=== PATIENT | male | born 1980 | race Caucasian/White ===

== ENCOUNTER 2017-05-12 23:41 | Inpatient (IN) | payer BC ==
[2017-05-13 00:30] LABS: Hematocrit 50 % (42-52); Hemoglobin 17.3 g/dl (14.0-18.0); Mean Corpuscular HGB Conc 34 g/dl (31-36); Mean Corpuscular Hemoglobin 32 pg (27-31); Mean Corpuscular Volume 94 fL (80-94); Mean Platelet Volume 8 um3 (7.4-10.4); Red Blood Count 5.35 10^6/ul (4.0-5.4); Red Cell Distribution Width 13 % (10.5-15); White Blood Count 14.3 10^3/ul (3.5-10.8)
[2017-05-13 00:31] LABS: Urine Bacteria Absent (Absent); Urine Bilirubin Negative (Negative); Urine Glucose Negative (Negative); Urine Nitrite Negative (Negative)
[2017-05-13 00:41] LABS: ALT 19 U/L (7-52); AST 35 U/L (13-39); Albumin 4.7 g/dL (3.2-5.2); Alkaline Phosphatase 42 U/L (34-104); Anion Gap 13 mmol/L (2-11); BUN/Creatinine Ratio 10.6 (8-20); Blood Urea Nitrogen 11 mg/dL (6-24); CO2 Carbon Dioxide 23 mmol/L (22-32); Calcium 9.7 mg/dL (8.6-10.3); Chloride 103 mmol/L (101-111); EGFR African American 104.5 (>60); EGFR Non-African American 81.3 (>60); Globulin 2.8 g/dL (2-4); Glucose 99 mg/dL (70-100); Potassium 3.3 mmol/L (3.5-5.0); Sodium 139 mmol/L (133-145); Total Protein 7.5 g/dL (6.4-8.9)
[2017-05-13 00:44] LABS: Benzodiazepine Urine Screen Presumptive Positive (None Detect)
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
[2017-05-13 01:01] LABS: Acetaminophen < 15 mcg/mL; Alcohol 15 mg/dL (<10); Salicylate < 2.50 mg/dL (<30)
[2017-05-13 01:53] LABS: TSH (Thyroid Stimulating Horm) 2.41 mcIU/mL (0.34-5.60)
[2017-05-13] MEDS ORDERED: LORazepam TAB(*) 1 MG PO ONE (04:03)
[2017-05-13] MEDS ORDERED: LORazepam TAB(*) 1 MG ONE (04:04)
[2017-05-13] MEDS ORDERED: Nicotine GUM* 2 MG PO PRN (05:59)
[2017-05-13] MEDS ORDERED: Mouth Piece, Nicotine* 1 EACH CARTRIDGE INH SCH (05:59)
[2017-05-13] MEDS ORDERED: Acetaminophen TAB* 325 MG PO PRN (05:59)
[2017-05-13] MEDS ORDERED: Nicotine Inhaler* 10 MG AMP INH PRN (05:59)
[2017-05-13] MEDS ORDERED: Al Hydrox/Mg Hydrox/Simet LIQ* 30 ML UDC PO PRN (05:59)
[2017-05-13] MEDS ORDERED: Albuterol 2.5 MG/3 ML NEB.SOL* (0.083%) INH PRN (06:01)
[2017-05-13] MEDS ORDERED: Albuterol HFA INHALER* 8 gm MDI INH PRN (06:39)
[2017-05-13] MEDS ORDERED: LORazepam PO 0-6 for WAM protocol PO SCH (07:00)
[2017-05-13] MEDS ORDERED: LORazepam IM 0-6 mg for WAM protocol IM SCH (07:00)
[2017-05-13] MEDS: Citalopram TAB* 40 MG PO SCH (08:55)
[2017-05-13] MEDS: Folic Acid TAB* 1 MG DAILY PO SCH (08:55)
[2017-05-13] MEDS: Multivitamins ADULT TAB DAILY PO SCH (08:56)
[2017-05-13] MEDS: Mometasone 220 MCG MDI INH SCH (17:36)
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
[2017-05-14] MEDS: Folic Acid TAB* 1 MG DAILY PO SCH (08:15)
[2017-05-14] MEDS: Citalopram TAB* 40 MG PO SCH (08:15)
[2017-05-14] MEDS: Multivitamins ADULT TAB DAILY PO SCH (08:15)
[2017-05-14] MEDS ORDERED: Influenza VAC *QUAD* 2017-18* 0.5 ML SYRINGE IM ONE (09:00)
[2017-05-14] MEDS: Mometasone 220 MCG MDI INH SCH (17:45)
[2017-05-14] MEDS ORDERED: traZODone TAB* 50 MG TAB ONE (20:32)
[2017-05-14] MEDS: traZODone TAB* 50 MG TAB PO PRN (20:45)
[2017-05-15] MEDS: Multivitamins ADULT TAB DAILY PO SCH (09:28)
[2017-05-15] MEDS: Citalopram TAB* 40 MG PO SCH (09:28)
[2017-05-15] MEDS: Folic Acid TAB* 1 MG DAILY PO SCH (09:28)
--- NOTE | 2017-05-15 14:51 | PN ---
Subjective - Subjective Service Type: 26812 Hosp care 15 min low complexity Subjective: Was in the milieu happy with peers. Says he wants to be discharged home because his cannot care for his children and they have resolved their differences during her visit today. Denies mood, thoughts or perceptual disturbances since his admission. Objective - Appearance Appearance: Thin Framed Dysmorphic Features: No Hygiene: Normal Grooming: Fairly Well Kept - Behavior Psychomotor Activities: Normal Exhibits Abnormal Movement: No - Attitude and Relatedness Attitude and Relatedness: Appropriate Eye Contact: Good - Speech Quality: Unpressured Latencies: Normal Quantity: Appropriate - Mood Patient's Decription of Mood: "Fine" - Affect Observed Affect: Non-labile - Thought Process Patient's Thought Process: Coherent, Goal Directed Thought Content: No Passive Wish, No Suicidal Planning, No Homicidal Ideation, No Paranoid Ideation - Sensorium Experiencing Hallucinations: No, Sensorium is Clear Type of Hallucinations: Visual: No, Auditory: No, Command: No - Level of Consciousness Level of Consciousness: Alert Orientation: Yes Intact, Yes Orientated to Time, Yes Orientated to Place, Yes Orientated to Person - Impulse Control Impulse Control: Tenuous - Insight and Judgement Insight and Judgement: Poor - Group Participation Particating in Group Activities: Yes - Medication Management Medication Management Adherence: Yes Assessment - Assessment Merits Inpatient Hospitalization: Consolidate Improvements, Pending Safe DC Plan Plan - Plan Treatment Plan: Name: SADIE AGUSTIN Birthdate: 1980 [id number] Continued Medication Management: Continue Outpt Medication Medications: Current Medications Acetaminophen (Tylenol Tab*) 650 mg PO Q4H PRN PRN Reason: PAIN or TEMP > 101 F Al Hydrox/Mg Hydrox/Simethicone (Maalox Plus*) 30 ml PO Q4H PRN PRN Reason: INDIGESTION Albuterol (Ventolin Hfa Inhaler*) 2 puff INH Q4H PRN PRN Reason: SOB/WHEEZING Citalopram Hydrobromide (Celexa Tab*) 40 mg PO DAILY [facility] Last Admin: 05/15/17 09:28 Dose: 40 mg Device (Nicotine Mouth Piece*) 1 each INH .CARTRIDGE OSMIN Folic Acid (Folvite Tab*) 1 mg PO DAILY [facility] Last Admin: 05/15/17 09:28 Dose: 1 mg Lorazepam (Ativan Tab(*)) 0 - 6 mg PO .PER [facility] OSMIN PRN Reason: Protocol Lorazepam (Ativan Inj*) 0 - 6 mg IM .[facility] PROTOCOL OSMIN PRN Reason: Protocol Mometasone Furoate (Asmanex 220 Mcg Mdi *) 1 puff INH QPM [facility] Last Admin: 05/14/17 17:45 Dose: 1 inh Multivitamins/Minerals (Theragran/Minerals Tab*) 1 tab PO DAILY [facility] Last Admin: 05/15/17 09:28 Dose: 1 tab Nicotine (Nicotine Inhaler*) 10 mg INH Q2H PRN PRN Reason: CRAVING Nicotine Polacrilex (Nicotine Gum*) 2 mg PO Q2H PRN PRN Reason: CRAVING Trazodone HCl (Desyrel Tab*) 50 mg PO BEDTIME PRN PRN Reason: INSOMNIA Last Admin: 05/14/17 20:45 Dose: 50 mg - Discharge Plan Discharge Plan: Outpatient Follow Up [facility]
[2017-05-15] MEDS: Mometasone 220 MCG MDI INH SCH (18:11)
[2017-05-15] MEDS: traZODone TAB* 50 MG TAB PO PRN (20:42)
[2017-05-16] MEDS: Citalopram TAB* 40 MG PO SCH (10:02)
[2017-05-16] MEDS: Multivitamins ADULT TAB DAILY PO SCH (10:02)
[2017-05-16] MEDS: Folic Acid TAB* 1 MG DAILY PO SCH (10:02)
--- NOTE | 2017-05-16 11:44 | PN ---
[facility]HU: Group Therapy Note - Service Type Service Type: 25699 Group Psychotherapy - Cognitive Behavioral Group Therapy ( CBT):Patient was attentive and participatory in CBT programming this morning, and remained in good behavioral control. Patient expressed positive insights regarding relevant treatment interventions and goals.
--- NOTE | 2017-05-16 16:06 | PN ---
Subjective - Subjective Service Type: 21156 Hosp care 15 min low complexity Subjective: On interview, patient noted to be full in affect smiling appropriately through the interview. He reports use of 1-2 ounces of [place] and 1 0.5mg Xanax tab to get to sleep and denies use of more. 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 He reports over the last 2 weeks getting approx. 2 hours of sleep per night due to a colicky . Patient denies OD on his remaining Xanax tabs. Per admission reported patient likely OD on approx. 20 Xanax 0.5mg tabs as per pill count that amount should have been in the bottle which was empty. Patient reports it was lack of sleep which led to his episode of confusion and agitation. Patient reports not fully recalling what happened the evening his and friends drove him to the hospital. He does recall accusing his of taking his Xanax tabs and then recalling attempting to jump from the car they were in once it came to a stop, reporting he panicked not knowing why he was being taken to the hospital. Patient reports recalling being cuffed by police and answering the officers questions prior to being brought to the ED. Patient reports recent stressors of 3 moves over the last 1 and a half due to his 's work. He reports only 2 weeks now being back in [place], transitioning from their home in [place]. Patient reports also his has been away for work recently, and he has not slept. Patient endorses a hx of suicide attempt in 11/2016 by attempting to hang himself. He reports again, the stress of having 2 colicky children and his not supporting him. Patient today says his 2 girls are his purpose in life. He again reports he did not OD on his Xanax tabs and does not know where the approx. 20 pills may be. Patient denies current SI/HI and AH/VH. He has not scored on WAM monitoring since admission. He reports experiencing no w/d symptoms. Patient aware he will not be discharging on benzos. Objective - Appearance Appearance: Well Developed/Nourished, Healthy Appearing, Thin Framed Dysmorphic Features: No Hygiene: Normal Grooming: Fairly Well Kept - Behavior Psychomotor Activities: Normal Exhibits Abnormal Movement: No - Attitude and Relatedness Attitude and Relatedness: Cooperative Eye Contact: Fair - Speech Quality: Unpressured Latencies: Normal Quantity: Appropriate - Mood Patient's Decription of Mood: "Okay" - Affect Observed Affect: Fair Affect Consistent with: Euthymia - Thought Process Patient's Thought Process: Coherent Thought Content: No Passive Wish, No Suicidal Planning, No Homicidal Ideation, No Paranoid Ideation - Sensorium Experiencing Hallucinations: No, Sensorium is Clear Type of Hallucinations: Visual: No, Auditory: No, Command: No - Level of Consciousness Level of Consciousness: Alert Orientation: Yes Intact, Yes Orientated to Time, Yes Orientated to Place, Yes Orientated to Person - Impulse Control Impulse Control: Intact - Insight and Judgement Insight and Judgement: Fair - Group Participation Particating in Group Activities: Yes - Medication Management Medication Management Adherence: Yes Assessment - Assessment Merits Inpatient Hospitalization: For Immediate Safety, For Stabilization Inpatient DSM-IV Dx: 1. MDD, R, M w/o PFs. 2. Cannabis use d/o. 3. r/o Alcohol use d/o. 4. r/o Benzodiazepine use d/o Plan - Plan Treatment Plan: Name: SADIE AGUSTIN Birthdate: 1980 [id number] 1. Continue [facility] admission for safety and symptom mx. 2. Continue Celexa 40mg po daily for mood. 3. WAM discontinued, patient has not scored in >72 hours of assessments. 4. Continue MVI, Folic acid, Thiamine replacement for r/o Alcohol use d/o symptoms. 5. Continue Trazodone 50mg po qhs PRN for sleep issues. 6. Continue gathering of collateral information from dad and . 7. Patient to participate in milieu activities and groups. Continued Medication Management: Different Medication Medications: Current Medications Acetaminophen (Tylenol Tab*) 650 mg PO Q4H PRN PRN Reason: PAIN or TEMP > 101 F Al Hydrox/Mg Hydrox/Simethicone (Maalox Plus*) 30 ml PO Q4H PRN PRN Reason: INDIGESTION Albuterol (Ventolin Hfa Inhaler*) 2 puff INH Q4H PRN PRN Reason: SOB/WHEEZING Citalopram Hydrobromide (Celexa Tab*) 40 mg PO DAILY OSMIN Last Admin: 05/16/17 10:02 Dose: 40 mg Device (Nicotine Mouth Piece*) 1 each INH .CARTRIDGE OSMIN Folic Acid (Folvite Tab*) 1 mg PO DAILY REPLACED BY [facility] Last Admin: 05/16/17 10:02 Dose: 1 mg Mometasone Furoate (Asmanex 220 Mcg Mdi *) 1 puff INH QPM REPLACED BY [facility] Last Admin: 05/15/17 18:11 Dose: 1 inh Multivitamins/Minerals (Theragran/Minerals Tab*) 1 tab PO DAILY REPLACED BY [facility] Last Admin: 05/16/17 10:02 Dose: 1 tab Nicotine (Nicotine Inhaler*) 10 mg INH Q2H PRN PRN Reason: CRAVING Nicotine Polacrilex (Nicotine Gum*) 2 mg PO Q2H PRN PRN Reason: CRAVING Trazodone HCl (Desyrel Tab*) 50 mg PO BEDTIME PRN PRN Reason: INSOMNIA Last Admin: 05/15/17 20:42 Dose: 50 mg - Discharge Plan Discharge Plan: Outpatient Follow Up
[2017-05-16] MEDS: Mometasone 220 MCG MDI INH SCH (18:16)
[2017-05-16] MEDS: traZODone TAB* 50 MG TAB PO PRN (20:12)
[2017-05-17 07:47] VITALS: BP 120/71
[2017-05-17] MEDS: Folic Acid TAB* 1 MG DAILY PO SCH (08:52)
[2017-05-17] MEDS: Citalopram TAB* 40 MG PO SCH (08:52)
[2017-05-17] MEDS: Multivitamins ADULT TAB DAILY PO SCH (08:52)
--- NOTE | 2017-05-17 13:32 | DS ---
Subjective - Subjective Service Types: 31858 [facility] Day Mgmt simple under 30 min Subjective: Patient noted to be visible in the milieu, pleasant, social with peers and attending groups. Patient reports good benefit from groups and requested outpt psychotherapy from inpt therapist Dr. Gianni Acosta. He again reports no depression or anxiety. Patient again reports good sleep and appetite. Patient gave BLAISE for this provider to call his #[phone]. reports patient has reported fleeting SI since his last suicide attempt 1 year ago. She reports understanding he is stressed with care of the 2 children and is happy to be back in [place] around supportive family who can help patient while she is on the road for work. She report during patient rage on night of admission, he grabbed a rifle which was in the home. She reports he expressed SI, but reports while in the ED, patient reported not recalling making those statements. She reports believing patient was using more Xanax than prescribed and reports she does not feel he OD'd on 20tabs, but due to his behavioral display and subsequent lack of memory of the details, she feels he did likely take more that one tab with his evening bourbon. reports she is comfortable with patient discharging home as from her calls and visit with patient while admitted, he is engaged in continuing MH therapy after discharge and engaged in working on communication techniques in their relationship. Patient has been med compliant since admission. Patient denies med s/e's. Patient reports feeling ready for discharge. Patient is A&Ox4, linear and GD in TP, and future oriented in TC. Patient reports his desire to get home to his 2 baby girls who he again endorses are his purpose for living and primary protective factors. Patient again denies SI/ HI and AH/VH. Patient is psychiatrically stable. Discharge plan has been discussed and patient is amenable and acknowledges understanding. Patient instructed to call the crisis hotline, 911, or self present to a local ED if SI recurs. Patient was amenable and acknowledged understanding of family and community supports. Patient will be discharge home with his who has come to pick him up. Objective - Appearance Appearance: Well Developed/Nourished, Healthy Appearing, Thin Framed Dysmorphic Features: No Hygiene: Normal Grooming: Well Kept - Behavior Psychomotor Activities: Normal Exhibits Abnormal Movement: No - Attitude and Relatedness Attitude and Relatedness: Cooperative Eye Contact: Good - Speech Quality: Unpressured Latencies: Normal Quantity: Appropriate - Mood Patient's Decription of Mood: "Fine" - Affect Observed Affect: Fair Affect Consistent with: Euthymia - Thought Process Patient's Thought Process: Coherent Thought Content: No Passive Wish, No Suicidal Planning, No Homicidal Ideation, No Paranoid Ideation - Sensorium Experiencing Hallucinations: No, Sensorium is Clear Type of Hallucinations: Visual: No, Auditory: No, Command: No - Level of Consciousness Level of Consciousness: Alert Orientation: Yes Intact, Yes Orientated to Time, Yes Orientated to Place, Yes Orientated to Person - Impulse Control Impulse Control: Intact - Insight and Judgement Insight and Judgement: Fair - Group Participation Particating in Group Activities: Yes - Medication Management Medication Management Adherence: Yes Treatment Course & Assessment Clinical Course & Impression: HOSPITAL COURSE: Patient admitted to [facility] on 05/13/17 after display of erratic and bizarre behavior while making suicidal statements. Patient reported to be belligerent and combative, but subdued and driven to the [facility] ED by aleisha's and her friends visiting at the time. Concern was that patient had OD'd on his remaining 20 - Xanax 0.5mg tabs. Patient and recently had been dealing with marital issues associated with her job requiring her to be away from home >60% of the year. 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 He reports over the last 2 weeks getting approx. 2 hours of sleep per night due to a colicky . Patient denies OD on his remaining Xanax tabs. Per admission reported patient likely OD on approx. 20 Xanax 0.5mg tabs as per pill count that amount should have been in the bottle which was empty. He reports use of 1-2 ounces of [place] and 1 0.5mg Xanax tab to get to sleep and denies use of more. Patient reports it was lack of sleep which led to his episode of confusion and agitation. Patient reports not fully recalling what happened the evening his and friends drove him to the hospital. He does recall accusing his of taking his Xanax tabs and then recalling his attempting to jump from the car they were in once it came to a stop, reporting he panicked not knowing why he was being taken to the hospital. Patient reports recalling being cuffed by police and answering the officers questions prior to being brought to the ED. had called police from the street as patient was combative with and friends regarding being taken to the ED. Patient reports recent stressors of 3 moves over the last 1 and a half due to his 's work. He reports only 2 weeks now being back in [place], transitioning from their home in [place]. Patient reports also his has been away f or work recently, and he has not slept. Patient endorses a hx of suicide attempt in 11/2016 by attempting to hang himself. He reports again, the stress of having 2 colicky children and his not supporting him. Patient today says his 2 girls are his purpose in life. He again reports he did not OD on his Xanax tabs and does not know where the approx. 20 pills may be. Patient denies current SI/HI and AH/VH. He has not scored on WAM monitoring since admission. He reports experiencing no w/d symptoms. Patient aware he will not be discharging on benzos. He reports desire to not restart Benzos after this experience. On admission, patient's home Xanax and Lexapro 20mg daily was discontinued. Patient started on Celexa 40mg po daily and started on WAM monitoring for Benzo w/d. Patient reported no symptoms of w/d and did not score in >72hours of monitoring. WAM was discontinued on admission day 3. Patient noted to be visible in the milieu and social with peers. His affect noted to be full and he displayed no bizarre or aggressive behaviors. Patient attended all groups and reported daily benefit from them. On day of discharge, patient again noted to be visible in the milieu, pleasant, social with peers and attending groups. Patient reports good benefit from groups and requested outpt psychotherapy from inpt therapist Dr. Gianni Acosta. He again reports no depression or anxiety. Patient again reports good sleep and appetite. Patient gave BLAISE for this provider to call his #. reports patient has reported fleeting SI since his last suicide attempt 1 year ago. She reports understanding he is stressed with care of the 2 children and is happy to be back in [place] around supportive family who can help patient while she is on the road for work. She report during patient rage on night of admission, he grabbed a rifle which was in the home. She reports he expressed SI, but reports while in the ED, patient reported not recalling making those statements. She reports believing patient was using more Xanax than prescribed and reports she does not feel he OD'd on 20tabs, but due to his behavioral display and subsequent lack of memory of the details, she feels he did likely take more that one tab with his evening bourbon. reports she is comfortable with patient discharging home as from her calls and visit with patient while admitted, he is engaged in continuing MH therapy after discharge and engaged in working on communication techniques in their relationship. Patient has been med compliant since admission. Patient denies med s/e's. Patient reports feeling ready for discharge. Patient is A&Ox4, linear and GD in TP, and future oriented in TC. Patient reports his desire to get home to his 2 baby girls who he again endorses are his purpose for living and primary protective factors. Patient again denies SI/ HI and AH/VH. Patient is psychiatrically stable. Discharge plan has been discussed and patient is amenable and acknowledges understanding. Patient instructed to call the crisis hotline, 911, or self present to a local ED if SI recurs. Patient was amenable and acknowledged understanding of family and community supports. Patient will be discharge home with his who has come to pick him up. PERTINENT LABS: Laboratory Tests 05/13/17 05/13/17 05/13/17 00:17 00:17 00:17 WBC 14.3 H RBC 5.35 Hgb 17.3 Hct 50 MCV 94 MCH 32 H MCHC 34 RDW 13 Plt Count 195 MPV 8 Neut % (Auto) 88.7 H Lymph % (Auto) 4.7 L Branch % (Auto) 4.9 Eos % (Auto) 1.3 Baso % (Auto) 0.4 Absolute Neuts (auto) 12.7 H Absolute Lymphs (auto) 0.7 L Absolute Monos (auto) 0.7 Absolute Eos (auto) 0.2 Absolute Basos (auto) 0.1 Absolute Nucleated RBC 0.01 Nucleated RBC % 0 Sodium 139 Potassium 3.3 L Chloride 103 Carbon Dioxide 23 Anion Gap 13 H BUN 11 Creatinine 1.04 Est GFR ( Amer) 104.5 Est GFR (Non-Af Amer) 81.3 BUN/Creatinine Ratio 10.6 Glucose 99 Calcium 9.7 Total Bilirubin 1.60 H AST 35 ALT 19 Alkaline Phosphatase 42 Total Protein 7.5 Albumin 4.7 Globulin 2.8 Albumin/Globulin Ratio 1.7 TSH 2.41 Urine Color Urine Appearance Urine pH Ur Specific [place] Urine Protein Urine Ketones Urine Blood Urine Nitrate Urine Bilirubin Urine Urobilinogen Ur Leukocyte Esterase Urine WBC (Auto) Urine RBC (Auto) Ur Squamous Epith Cells Urine Bacteria Hyaline Casts Urine Glucose Urine Ascorbic Acid Salicylates < 2.50 Urine Opiates Screen None detected Acetaminophen < 15 Ur Barbiturates Screen None detected Ur Phencyclidine Scrn None detected Ur Amphetamines Screen None detected U Benzodiazepines Scrn Presumptive positive H Urine Cocaine Screen None detected U Cannabinoids Screen Presumptive positive H Serum Alcohol 15 H 05/13/17 00:17 WBC RBC Hgb Hct MCV MCH MCHC RDW Plt Count MPV Neut % (Auto) Lymph % (Auto) Branch % (Auto) Eos % (Auto) Baso % (Auto) Absolute Neuts (auto) Absolute Lymphs (auto) Absolute Monos (auto) Absolute Eos (auto) Absolute Basos (auto) Absolute Nucleated RBC Nucleated RBC % Sodium Potassium Chloride Carbon Dioxide Anion Gap BUN Creatinine Est GFR ( Amer) Est GFR (Non-Af Amer) BUN/Creatinine Ratio Glucose Calcium Total Bilirubin AST ALT Alkaline Phosphatase Total Protein Albumin Globulin Albumin/Globulin Ratio TSH Urine Color Zoey Urine Appearance Cloudy Urine pH 5.0 Ur Specific [place] 1.021 Urine Protein 2+(100 mg/dl) H Urine Ketones Trace H Urine Blood Negative Urine Nitrate Negative Urine Bilirubin Negative Urine Urobilinogen Negative Ur Leukocyte Esterase Negative Urine WBC (Auto) Trace(0-5/hpf) Urine RBC (Auto) Trace(0-2/hpf) Ur Squamous Epith Cells Present H Urine Bacteria Absent Hyaline Casts Present H Urine Glucose Negative Urine Ascorbic Acid * H Salicylates Urine Opiates Screen Acetaminophen Ur Barbiturates Screen Ur Phencyclidine Scrn Ur Amphetamines Screen U Benzodiazepines Scrn Urine Cocaine Screen U Cannabinoids Screen Serum Alcohol Consultants: none Discharge Meds: Home Medications Medication Instructions Recorded Confirmed Type Fluticasone HFA 220 mcg(NF) 1 puff INH DAILY 06/04/15 05/13/17 History [Flovent Hfa 220 Mcg(NF)] Albuterol HFA INHALER* [Ventolin 2 puff INH Q4HR PRN 05/13/17 05/13/17 History HFA Inhaler*] Citalopram TAB* [Celexa TAB*] 40 mg PO DAILY #30 tab 05/17/17 Rx Multivitamins/Minerals TAB* 1 tab PO DAILY #30 tab 05/17/17 Rx [Theragran/minerals TAB*] traZODone TAB* [Desyrel TAB*] 50 mg PO BEDTIME PRN #30 tab 05/17/17 Rx Follow-Up: Appt. for within the next 2 weeks scheduled by SW with [facility]. Clear for Discharge: Adequate Clinical Respons, Acceptable Safety Profile Inpatient DSM-IV Dx: 1. MDD, R, M w/o PFs. 2. Cannabis use d/o. 3. r/o Alcohol use d/o. 4. r/o Benzodiazepine use d/o Discharge Planning - Discharge Planning Discharge Plan: Outpatient Follow Up Outpatient [facility] Recommendations for Continuing Care: Psychotherapy, Substance Abuse Counseling Medications: Current Medications Acetaminophen (Tylenol Tab*) 650 mg PO Q4H PRN PRN Reason: PAIN or TEMP > 101 F Al Hydrox/Mg Hydrox/Simethicone (Maalox Plus*) 30 ml PO Q4H PRN PRN Reason: INDIGESTION Albuterol (Ventolin Hfa Inhaler*) 2 puff INH Q4H PRN PRN Reason: SOB/WHEEZING Citalopram Hydrobromide (Celexa Tab*) 40 mg PO DAILY [facility] Last Admin: 05/17/17 08:52 Dose: 40 mg Device (Nicotine Mouth Piece*) 1 each INH .[facility] Folic Acid (Folvite Tab*) 1 mg PO DAILY [facility] Last Admin: 05/17/17 08:52 Dose: 1 mg Mometasone Furoate (Asmanex 220 Mcg Mdi *) 1 puff INH QPM [facility] Last Admin: 05/16/17 18:16 Dose: 1 inh Multivitamins/Minerals (Theragran/Minerals Tab*) 1 tab PO DAILY [facility] Last Admin: 05/17/17 08:52 Dose: 1 tab Nicotine (Nicotine Inhaler*) 10 mg INH Q2H PRN PRN Reason: CRAVING Nicotine Polacrilex (Nicotine Gum*) 2 mg PO Q2H PRN PRN Reason: CRAVING Trazodone HCl (Desyrel Tab*) 50 mg PO BEDTIME PRN PRN Reason: INSOMNIA Last Admin: 05/16/17 20:12 Dose: 50 mg Discharge Planning: Prescriptions provided for discharge [x] Yes [] No Follow up care details as per social work arrangements. Patient response to discharge plan: [] eager for discharge [x] agreeable with discharge plan [] ambivalent about discharge [] disagrees with discharge today
--- NOTE | 2017-05-17 13:58 | PN ---
[facility]: Group Therapy Note - Service Type Service Type: 83912 Group Psychotherapy - Cognitive Behavioral Group Therapy ( CBT):Patient was attentive and participatory in CBT programming this morning, and remained in good behavioral control. Patient expressed positive insights regarding relevant treatment interventions and goals.
--- NOTE | 2017-05-17 17:10 | CONS ---
PSYCHOLOGICAL REPORT: DATE OF CONSULTATION: 05/16/17 REASON FOR REFERRAL: Sarbjit was referred for personality testing secondary to concerns regarding diagnostic impression as well as possible lethality. Concerns are revolving around different stories between the patient's in regards to presenting crisis. TEST ADMINISTERED: Sarbjit completed the [place] Multiphasic Personality Inventory - 2 (MMPI-2). He was given feedback in individual conversation and seen in a context of group cognitive behavioral psychotherapy by this policy writer sales on 2 occasions. RELEVANT HISTORY: Sarbjit describes increasing depressive symptoms occurring in recent weeks secondary to his 's absence as she travels for work. She has a PhD from [employer] in [employer] science and has been traveling of late to [place] for work. Historically, she has also been employed in [place] where they relocated from the [place] area, but are in process of moving back to [place] secondary to poor adjustment in [place]. They have 2 young daughters , ages approximately 1 year and 2 years of age and Sarbjit describes increasing emotional duress secondary to essentially being a single parent. He describes difficulties with establishing sleep patterns for both kids as neither appear to sleep simultaneously, but tend to nap and sleep different times of day. This leaves him often awake for much of the day, only sleeping a few hours at a time. Sarbjit describes being overwhelmed and eventually elicited the help from his cousin's , who came over to the house to watch the kids while he was going to sleep. Sarbjit describes taking 1 pill of Xanax and drinking a glass of bourbon and then blacking out. Eventually, his and his 's cousin were concerned that he had overdosed on Xanax and were attempting to transport him to the hospital for evaluation, whereupon he became agitated and tried to get out of a moving car. Subsequently, 911 was called and the police responded by taking him to the facility for evaluation. 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 Secondarily, he describes symptoms of high anxiety, night terrors, feelings of hopelessness and being out of control. He describes his daughter's crying is often trigging PTSD type symptomatology. Sarbjit describes smoking cigarettes daily for about 20 years before being diagnosed with COPD and quitting. He reports drinking bourbon 1 or 2 glasses 3 to 4 times a week and has historically been prescribed medical marijuana, reporting using oil extracted from marijuana on a daily basis. Other supports to include his parents who live in [place], [place], and are at least planning on being more attentive to helping Sarbjit to supervise the kids. Historically, he describes being short of a bachelor's degree in mechanical engineering and was born and raised in [place], [place]. His 's current employment responsibilities include recurrent travel and being away from the home for a significant period of time. BEHAVIORAL OBSERVATIONS: Sarbjit is a 36-year-old male, who has consistently presented on the unit with good affect. He is bright and spontaneous in conversation and interacts in an empathic fashion with both peers and staff. His expresses his positive insights regarding his difficulties , having difficulty acclimating to the role of being a single parent in his 's absence. He also describes being naive to synergistic effects of mixing Ativan with alcohol, asserting that he simply took a pill as prescribed, but did not understand that drinking bourbon in conjunction with taking a pill would result in such a condition. He describes his intentions of not utilizing Xanax further as well as not drinking any alcohol in coming weeks. He spontaneously describes pro-social goals particularly regarding his parenting role. Discussion addressed possibility of garnering increased supports regarding daycare and perhaps returning to gainful employment as he describes feeling very emotionally isolated without having work. TEST RESULTS: Sarbjit provides a valid protocol on this administration of MMPI-2. He has very mild elevations occurring on the neurotic triad index attaining a depression score of (T=67) and conversion hysteria scale of (T=66). Persons with similar profiles are described as utilizing repression as the primary emotional defence and who tend to then internalize stress and difficulties without expressing themselves in suitably satisfactory fashion. Such persons are prone to identify physical difficulties often consistent with headaches, back problems, and/or stomach duress when under emotional stress. Concerns in Sarbjit's case revolve around historical posttraumatic stress type symptomatology, where he may experience recurrent nightmares and other anxiety-related phenomena. IMPRESSION AND RECOMMENDATIONS: Sarbjit impresses as being a good candidate for psychotherapy currently as he is expressing a need for help and for additional supports. Continuing treatment should emphasize the importance of medication compliance as well as perhaps discontinuation of benzodiazepine especially in the context of alcohol use. Lethality concerns revolve around an apparent prior suicide attempt where he describes having thoughts of hanging. Although, he survived this attempt, he never sought medical or psychiatric treatment thereafter and appears to be rather naive to mental health treatment. Past that , he denies any historical violence either self directed or other. 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 [id number]/[facility] #: [id number] MYRIAM
== END 2017-05-17 14:40 | disposition home or self-care (01) | DRG 751 ==
LOC: ED 23:41 → BSU 05-13 05:22
PROVIDERS: ADMIT Psychiatry & Neurology Psychiatry; ATTEND Psychiatry & Neurology Psychiatry
PROC: HZ2ZZZZ Detoxification Services for Substance Abuse Treatment (ICD-10-PCS; principal; 2017-05-13)
DX: F33.1 Major depressive disorder, recurrent, moderate (principal); J44.9 Chronic obstructive pulmonary disease, unspecified; F12.10 Cannabis abuse, uncomplicated; F17.210 Nicotine dependence, cigarettes, uncomplicated; F10.10 Alcohol abuse, uncomplicated; F19.10 Other psychoactive substance abuse, uncomplicated; Y90.0 Blood alcohol level of less than 20 mg/100 ml; F43.10 Post-traumatic stress disorder, unspecified; Z81.1 Family history of alcohol abuse and dependence
CPT/HCPCS: 36415; 80053; 80307; 80320; 80329; 81003; 81015; 84443; 85025; 90686; A9270-GY; G0480

== ENCOUNTER 2018-03-01 15:19 | Emergency (ER) | payer BC ==
[2018-03-01] MEDS ORDERED: NS 0.9% 1000 ML* 2,000 ML IV ONE (16:56)
[2018-03-01] MEDS ORDERED: Morphine VIAL* 4 MG/ML VIAL (1 ml vial) IV ONE (16:56)
[2018-03-01] MEDS ORDERED: Ondansetron ODT TAB* 4 MG PO ONE (16:56)
[2018-03-01 17:44] LABS: ABS Basophils 0 10^3/ul (0-0.2); ABS Eosinophils 0 10^3/ul (0-0.6); ABS Lymphocytes 0.7 10^3/ul (1.0-4.8); ABS Monocytes 0.7 10^3/ul (0-0.8); ABS Neutrophils 5.1 10^3/ul (1.5-7.7); ABS Nucleated RBC 0 10^3/ul; Eosinophil % 0.7 % (0-6); Hematocrit 49 % (42-52); Hemoglobin 16.9 g/dl (14.0-18.0); Lymphocyte % 10.5 % (25-47); Mean Corpuscular HGB Conc 35 g/dl (31-36); Mean Corpuscular Hemoglobin 33 pg (27-31); Mean Corpuscular Volume 94 fL (80-94); Mean Platelet Volume 7.8 um3 (7.4-10.4); Nucleated Red Blood Cells % 0.1; Platelet Count 224 10^3/ul (150-450); Red Blood Count 5.19 10^6/ul (4.00-5.40); Red Cell Distribution Width 13 % (10.5-15); White Blood Count 6.7 10^3/ul (3.5-10.8)
[2018-03-01 17:51] LABS: EGFR Non-African American 77.4 (>60); INR 0.93 (0.77-1.02)
[2018-03-01] MEDS ORDERED: Iohexol 300* (CONTRAST) 10 ML SDV IV ONE (18:19)
--- NOTE | 2018-03-01 19:49 | RAD ---
Indication: Lower abdominal pain. Contrast: Administered 105.3 ml of OMNIPAQUE 300 mg/ml CT of the abdomen and pelvis was performed without oral or IV contrast administration. Coronal and sagittal reconstructed images were obtained. The lung bases demonstrate no pleural fluid, nodules or masses. Heart is of normal size without evidence of pericardial effusion. Liver is normal in size. No focal lesions or intrahepatic duct dilatation is noted. The gallbladder demonstrates no calcified gallstones. No pericholecystic fluid or wall thickening is noted. No adrenal lesions are noted. The kidneys demonstrate symmetric nephrograms without focal lesions. No retroperitoneal lymphadenopathy is noted. The pancreas demonstrates no mass or pancreatic duct dilatation. The spleen is normal in size. No adrenal masses are noted. The kidneys demonstrate symmetric nephrograms without focal lesions. CT of the pelvis demonstrates no dilated loops of bowel. Contrast is noted in the colon. A small to moderate amount of free fluid is noted in the pelvis. No hernias are identified. There is diffuse wall thickening throughout the right colon, transverse colon, descending colon extending to the sigmoid. There is evidence of pericolonic infiltration of fat and findings are suggestive of colitis. This may be inflammatory or infectious in nature. No evidence of a pericolonic abscess is noted. No hernias are identified. The urinary bladder demonstrates normal wall. No hernias are noted. IMPRESSION: Diffuse wall thickening of the right colon, transverse colon, descending colon and sigmoid colon. Findings are consistent with colitis which may be infectious or inflammatory in nature. Clinical correlation is suggested. Pericolonic infiltration of fat is noted however no abscess collections are noted. A moderate amount of free fluid is noted in the pelvis.
[2018-03-01] MEDS ORDERED: metroNIDAZOLE TAB* 250 MG PO ONE (20:06)
[2018-03-01] MEDS ORDERED: Ciprofloxacin TAB* 500 MG PO ONE (20:06)
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
[2018-03-01 21:08] VITALS: BP 124/76
== END 2018-03-01 21:05 | disposition home or self-care (01) ==
LOC: ED 15:19
DX: K52.9 Noninfective gastroenteritis and colitis, unspecified (principal); F17.210 Nicotine dependence, cigarettes, uncomplicated
CPT/HCPCS: 36415; 74177; 80053; 82270; 83605; 83630; 83690; 85025; 85610; 85730; 86140; 87045; 87046; 87077; 87328; 87329; 87493; 87899; 96361; 96374; 99283; A9270-GY; J2270; Q9967

== ENCOUNTER 2022-03-13 11:36 | Inpatient (IN) ==
[2022-03-13] MEDS ORDERED: NS 0.9% 1000 ml BAG 1,000 ML IV ONE ×2 (12:21→14:56)
[2022-03-13] MEDS ORDERED: Morphine 4 MG/ML VIAL (1 ml) IV ONE ×3 (12:21→16:04)
[2022-03-13 13:23] LABS: ABS Eosinophils 0.2 10^3/ul (0-0.6); ABS Lymphocytes 0.5 10^3/ul (1.0-4.8); ABS Monocytes 1.3 10^3/ul (0-0.8); ABS Neutrophils 13.2 10^3/ul (1.5-7.7); Hematocrit 46 % (42-52); Hemoglobin 15.5 g/dL (14.0-18.0); Lymphocyte % 3.1 %; Mean Corpuscular HGB Conc 34 g/dL (31-36); Mean Corpuscular Hemoglobin 32 pg (27-31); Mean Corpuscular Volume 96 fL (80-94); Mean Platelet Volume 7.4 fL (7.4-10.4); Nucleated Red Blood Cells % 0.1; Platelet Count 305 10^3/uL (150-450); Red Blood Count 4.82 10^6 /uL (4.18-5.48); Red Cell Distribution Width 12 % (10-15); White Blood Count 15.1 10^3/uL (3.5-10.8)
[2022-03-13 13:57] LABS: Albumin 3.9 g/dL (3.2-5.2); Albumin/Globulin Ratio 1.4 (1-3); C Reactive Protein 118.82 mg/L (<8.01); Calcium 8.9 mg/dL (8.6-10.3); Globulin 2.8 g/dL (2-4); Potassium 4.5 mmol/L (3.5-5.0); Total Bilirubin 0.5 mg/dL (0.2-1.0); Total Protein 6.7 g/dL (6.4-8.9); eGFR CKD-EPI 102.5 (>60)
[2022-03-13] MEDS ORDERED: Iohexol 350 (CONTRAST) 500 ML MDV IV ONE (14:08)
[2022-03-13 14:16] LABS: Urine Appearance Clear; Urine Bilirubin Negative (Negative); Urine Blood Negative (Negative); Urine Color Yellow; Urine Glucose Negative (Negative); Urine Ketones Negative (Negative); Urine Nitrite Negative (Negative); Urine Protein Negative (Negative); Urine Specific Gravity 1.014 (1.002-1.030); Urine Urobilinogen Negative (Negative)
[2022-03-13] MEDS ORDERED: Piperacillin/Tazobac ADVAN 3.375 GM in NS 0.9% 100 ml BAG 100 ML IV ONE (15:29)
[2022-03-13] MEDS: HYDROmorphone 1 MG/1 ML SYRINGE IV SLOW PU PRN ×3 (18:34→22:47)
[2022-03-13] MEDS ORDERED: [UNRECOGNIZED DRUG - OTHER] IV ONE (20:10)
[2022-03-13] MEDS ORDERED: TAZOBACTAM IV ONE (20:10)
[2022-03-13] MEDS ORDERED: PIPERACILLIN IV ONE (20:10)
[2022-03-13] MEDS ORDERED: Zosyn per Pharmacy NOTE FOLLOW UP PRN (22:53)
[2022-03-14] MEDS: HYDROmorphone 1 MG/1 ML SYRINGE IV SLOW PU PRN ×7 (00:52→20:23)
[2022-03-14] MEDS: NS 0.9% 1000 ml BAG 1,000 ML IV SCH ×4 (01:13→23:18)
[2022-03-14] MEDS: Piperacillin/Tazobactam VIAL 3.375 GM in NS 0.9% 100 ml BAG 100 ML IVPB SCH ×3 (04:07→20:20)
[2022-03-14 05:57] LABS: Hematocrit 45 % (42-52); Mean Corpuscular HGB Conc 34 g/dL (31-36); Mean Corpuscular Hemoglobin 33 pg (27-31); Mean Corpuscular Volume 97 fL (80-94); Mean Platelet Volume 7.4 fL (7.4-10.4); Platelet Count 327 10^3/uL (150-450); Red Cell Distribution Width 12 % (10-15)
[2022-03-14 05:59] LABS: ABS Eosinophils 0.1 10^3/ul (0-0.6); ABS Lymphocytes 1.2 10^3/ul (1.0-4.8); ABS Monocytes 1.6 10^3/ul (0-0.8); ABS Neutrophils 16.1 10^3/ul (1.5-7.7); Eosinophil % 0.4 %; Lymphocyte % 6.5 %
[2022-03-14 06:20] LABS: C Reactive Protein 181.96 mg/L (<8.01); Calcium 8.9 mg/dL (8.6-10.3); Potassium 3.9 mmol/L (3.5-5.0); eGFR CKD-EPI 98.8 (>60)
[2022-03-14] MEDS: Ondansetron 4 mg VIAL 2 MG/ML 2 ml VIAL IV PRN ×2 (06:36→15:08)
[2022-03-14] MEDS ORDERED: Scopolamine 1 mg/72hr PATCH TRANSDERM SCH (09:00)
[2022-03-15] MEDS: HYDROmorphone 1 MG/1 ML SYRINGE IV SLOW PU PRN ×2 (03:54→20:25)
[2022-03-15] MEDS: Piperacillin/Tazobactam VIAL 3.375 GM in NS 0.9% 100 ml BAG 100 ML IVPB SCH ×3 (03:54→20:24)
[2022-03-15] MEDS: NS 0.9% 1000 ml BAG 1,000 ML IV SCH (05:48)
[2022-03-15 06:08] LABS: ABS Eosinophils 0.1 10^3/ul (0-0.6); ABS Lymphocytes 0.6 10^3/ul (1.0-4.8); ABS Monocytes 0.7 10^3/ul (0-0.8); ABS Neutrophils 9.2 10^3/ul (1.5-7.7); Eosinophil % 0.5 %; Hematocrit 39 % (42-52); Hemoglobin 13.1 g/dL (14.0-18.0); Lymphocyte % 5.4 %; Mean Corpuscular HGB Conc 34 g/dL (31-36); Mean Corpuscular Hemoglobin 32 pg (27-31); Mean Corpuscular Volume 97 fL (80-94); Mean Platelet Volume 7.6 fL (7.4-10.4); Nucleated Red Blood Cells % 0.1; Platelet Count 243 10^3/uL (150-450); Red Blood Count 4.03 10^6 /uL (4.18-5.48); Red Cell Distribution Width 12 % (10-15); White Blood Count 10.5 10^3/uL (3.5-10.8)
[2022-03-15] MEDS: Ondansetron 4 mg VIAL 2 MG/ML 2 ml VIAL IV PRN (06:55)
[2022-03-15] MEDS ORDERED: NS 0.9% 1000 ml BAG 1,000 ML IV SCH (10:07)
[2022-03-16] MEDS: Piperacillin/Tazobactam VIAL 3.375 GM in NS 0.9% 100 ml BAG 100 ML IVPB SCH (04:43)
[2022-03-16 07:56] VITALS: BP 111/66
[2022-03-16] MEDS: HYDROmorphone 1 MG/1 ML SYRINGE IV SLOW PU PRN (08:19)
[2022-03-16] MEDS: Ondansetron 4 mg VIAL 2 MG/ML 2 ml VIAL IV PRN (08:25)
== END 2022-03-16 11:45 | disposition home or self-care (01) | DRG 244 ==
LOC: ED 11:36 → EDHOLD 17:47 → SSU 22:39
PROVIDERS: ADMIT Surgery; ATTEND Surgery

== ENCOUNTER 2023-01-14 14:17 | Inpatient (IN) ==
[2023-01-14 16:21] LABS: ABS Eosinophils 0.1 10^3/uL (0.0-0.5); ABS Lymphocytes 0.7 10^3/uL (1.0-4.8); ABS Monocytes 0.8 10^3/uL (0.0-1.1); ABS Neutrophils 11.2 10^3/uL (1.5-7.6); Hematocrit 40.5 % (38-53); Hemoglobin 13.9 g/dL (13.2-16.3); Lymphocyte % 5.6 %; Mean Corpuscular Hemoglobin 31.3 pg (27-33); Mean Corpuscular Hgb Conc 34.3 g/dL (31-36); Mean Corpuscular Volume 91.4 fL (80-97); Platelet Count 291 10^3/uL (150-450); Red Blood Count 4.44 10^6/uL (4.06-5.63); Red Cell Distribution Width 13.3 % (12-17); White Blood Count 12.9 10^3/uL (3.6-10.2)
[2023-01-14 17:00] LABS: Albumin 4.2 g/dL (3.2-5.2); Albumin/Globulin Ratio 1.4 (1-3); C Reactive Protein 38.5 mg/L (<8.01); Calcium 9.4 mg/dL (8.6-10.3); Creatinine, Serum 0.9 mg/dL (0.67-1.17); Globulin 2.9 g/dL (2-4); Potassium 4.6 mmol/L (3.5-5.0); Total Bilirubin 0.5 mg/dL (0.2-1.0); Total Protein 7.1 g/dL (6.4-8.9)
[2023-01-14] MEDS ORDERED: Iohexol 350 (CONTRAST) 500 ML MDV IV ONE (17:12)
[2023-01-14] MEDS ORDERED: Lactated Ringers 1000 ml BAG 1,000 ML IV ONE (17:16)
[2023-01-14] MEDS ORDERED: Ondansetron 4 mg VIAL 2 MG/ML 2 ml VIAL IV ONE (17:16)
[2023-01-14 18:31] LABS: Urine Appearance Clear; Urine Bilirubin Negative (Negative); Urine Blood Negative (Negative); Urine Color Colorless; Urine Glucose Negative (Negative); Urine Ketones Negative (Negative); Urine Nitrite Negative (Negative); Urine Protein Negative (Negative); Urine Specific Gravity 1.001 (1.002-1.030); Urine Urobilinogen Negative (Negative)
[2023-01-14] MEDS ORDERED: Piperacillin/Tazobac ADVAN 3.375 GM in NS 0.9% 100 ml BAG 100 ML IV ONE (18:45)
[2023-01-14] MEDS ORDERED: Droperidol 5 MG/2 ML 2 ML VIAL IV ONE (19:25)
[2023-01-14] MEDS ORDERED: Morphine 10 MG/ML VIAL (1 ml) IV ONE (19:25)
[2023-01-14] MEDS ORDERED: PEG 3000 GI LAVAGE 1 GALLON PO ONE (20:12)
[2023-01-14] MEDS ORDERED: D5W 1/2 NS 40 Meq KCL 1000 ml 1,000 ML IV SCH (21:00)
[2023-01-15] MEDS ORDERED: Piperacillin/Tazobactam VIAL 3.375 GM in NS 0.9% 100 ml BAG 100 ML IVPB SCH (01:00)
[2023-01-15] MEDS: ZOSYN 3.375 GM Q8H per EXTENDED INFUSION IV SCH ×3 (01:41→19:00)
[2023-01-15 08:43] LABS: ABS Eosinophils 0.2 10^3/uL (0.0-0.5); ABS Monocytes 0.7 10^3/uL (0.0-1.1); ABS Neutrophils 4.4 10^3/uL (1.5-7.6); Hematocrit 35.7 % (38-53); Hemoglobin 12.3 g/dL (13.2-16.3); Lymphocyte % 16.5 %; Mean Corpuscular Hemoglobin 31.8 pg (27-33); Mean Corpuscular Hgb Conc 34.4 g/dL (31-36); Mean Corpuscular Volume 92.6 fL (80-97); Platelet Count 258 10^3/uL (150-450); Red Blood Count 3.85 10^6/uL (4.06-5.63); Red Cell Distribution Width 13.5 % (12-17); White Blood Count 6.4 10^3/uL (3.6-10.2)
[2023-01-15] MEDS: HYDROmorphone 0.5 MG/0.5 ML SYRINGE IV SLOW PU PRN ×5 (11:07→21:56)
[2023-01-15] MEDS: Ondansetron 4 mg VIAL 2 MG/ML 2 ml VIAL IV PRN ×3 (11:59→18:58)
[2023-01-15] MEDS ORDERED: Trimethobenzamide *IM* 100 mg/ml 2 ml VIAL (200 mg) IM PRN (17:48)
[2023-01-15] MEDS: D5W 1/2 NS 40 Meq KCL 1000 ml 1,000 ML IV SCH (19:06)
[2023-01-15] MEDS: Metoclopramide 5 MG/ML VIAL (10 mg) IV PRN (20:33)
[2023-01-15] MEDS ORDERED: HYDROmorphone 0.5 MG/0.5 ML SYRINGE IV SLOW PU ONE (20:45)
[2023-01-15] MEDS: Pantoprazole VIAL 40 MG VIAL IV SCH (23:36)
[2023-01-15] MEDS: Acetaminophen IV 1 GM/100ML 1,000 MG/100 ML BAG IV PRN (23:36)
[2023-01-16] MEDS: ZOSYN 3.375 GM Q8H per EXTENDED INFUSION IV SCH ×3 (01:04→16:18)
[2023-01-16] MEDS: Ondansetron 4 mg VIAL 2 MG/ML 2 ml VIAL IV PRN ×3 (01:04→22:06)
[2023-01-16] MEDS: D5W 1/2 NS 40 Meq KCL 1000 ml 1,000 ML IV SCH ×2 (03:51→11:14)
[2023-01-16 08:00] LABS: ABS Eosinophils 0.2 10^3/uL (0.0-0.5); ABS Lymphocytes 0.9 10^3/uL (1.0-4.8); ABS Monocytes 0.6 10^3/uL (0.0-1.1); ABS Neutrophils 6.5 10^3/uL (1.5-7.6); Eosinophil % 2.3 %; Hematocrit 37.8 % (38-53); Hemoglobin 13.1 g/dL (13.2-16.3); Lymphocyte % 10.6 %; Mean Corpuscular Hemoglobin 31.7 pg (27-33); Mean Corpuscular Hgb Conc 34.6 g/dL (31-36); Mean Corpuscular Volume 91.5 fL (80-97); Mean Platelet Volume 7.1 fL (7.5-11.2); Platelet Count 286 10^3/uL (150-450); Red Blood Count 4.13 10^6/uL (4.06-5.63); Red Cell Distribution Width 13.2 % (12-17); White Blood Count 8.1 10^3/uL (3.6-10.2)
[2023-01-16] MEDS: Acetaminophen IV 1 GM/100ML 1,000 MG/100 ML BAG IV PRN (08:12)
[2023-01-16 08:45] LABS: Calcium 8.7 mg/dL (8.6-10.3); Creatinine, Serum 0.83 mg/dL (0.67-1.17); Potassium 4.5 mmol/L (3.5-5.0); eGFR CKD-EPI 112.8 (>60)
[2023-01-16] MEDS: Morphine 2 MG/ML SYRINGE IV PRN ×3 (13:14→19:48)
[2023-01-16] MEDS: Metoclopramide 5 MG/ML VIAL (10 mg) IV PRN (19:53)
[2023-01-16] MEDS: Pantoprazole VIAL 40 MG VIAL IV SCH (20:32)
[2023-01-17] MEDS: ZOSYN 3.375 GM Q8H per EXTENDED INFUSION IV SCH ×2 (01:56→10:29)
[2023-01-17] MEDS: Morphine 2 MG/ML SYRINGE IV PRN ×2 (02:08→08:43)
[2023-01-17 06:01] LABS: ABS Eosinophils 0.4 10^3/uL (0.0-0.5); ABS Lymphocytes 1.3 10^3/uL (1.0-4.8); ABS Monocytes 0.6 10^3/uL (0.0-1.1); ABS Neutrophils 3.8 10^3/uL (1.5-7.6); ABS Nucleated RBC 0.01 10^3/ul; Eosinophil % 5.9 %; Hematocrit 38.4 % (38-53); Hemoglobin 13.5 g/dL (13.2-16.3); Lymphocyte % 21.1 %; Mean Corpuscular Hemoglobin 31.8 pg (27-33); Mean Corpuscular Hgb Conc 35.3 g/dL (31-36); Mean Corpuscular Volume 90.1 fL (80-97); Nucleated Red Blood Cells % 0.2 /100 WBC (0.0-0.4); Platelet Count 296 10^3/uL (150-450); Red Blood Count 4.26 10^6/uL (4.06-5.63); Red Cell Distribution Width 13.1 % (12-17); White Blood Count 6.2 10^3/uL (3.6-10.2)
[2023-01-17 06:24] LABS: C Reactive Protein 19.58 mg/L (<8.01); Calcium 9.3 mg/dL (8.6-10.3); Creatinine, Serum 0.87 mg/dL (0.67-1.17); Potassium 4.4 mmol/L (3.5-5.0); eGFR CKD-EPI 111.2 (>60)
[2023-01-17] MEDS: Ondansetron 4 mg VIAL 2 MG/ML 2 ml VIAL IV PRN (07:49)
[2023-01-17 18:39] VITALS: BP 116/64
== END 2023-01-18 00:18 | disposition home or self-care (01) | DRG 244 ==
LOC: ED 14:17 → EDHOLD 21:16 → MEDTELE 01-15 15:04
PROVIDERS: ADMIT Surgery; ATTEND Surgery

== ENCOUNTER 2023-03-29 10:26 | Inpatient (IN) ==
[~2023-03-29 10:26] MED LIST: Buffered Lidocaine 1% SYRIN 1 ml INTRADERM ONE; Ertapenem 1 GM in NS 0.9% 50 ML BAG IVPB SCH; HYDROmorphone 1 MG/1 ML SYRINGE IV PRN; Lactated Ringers 1000 ml BAG 1,000 ML IV SCH; Naloxone 0.4 mg VIAL 0.4 mg/ml 1 ml VIAL IV PRN; Ondansetron 4 mg VIAL 2 MG/ML 2 ml VIAL IV PRN
[2023-03-29] MEDS ORDERED: Dexamethasone IV 4 MG/ML VIAL 1 ml VIAL ONE (11:10)
[2023-03-29] MEDS ORDERED: Ondansetron 4 mg VIAL 2 MG/ML 2 ml VIAL ONE (11:10)
[2023-03-29] MEDS ORDERED: Midazolam 2 mg/2 ml VIAL 1 mg/ml 2 ml VIAL (2 mg) ONE ×2 (11:10→11:32)
[2023-03-29] MEDS ORDERED: fentaNYL 250 mcg/5 ml 50 MCG/ML 5 ml VIAL (250 MCG) ONE (11:10)
[2023-03-29] MEDS ORDERED: Rocuronium 50 mg VIAL 10 mg/ml 5 ml VIAL (50 mg) ONE ×4 (11:10→15:32)
[2023-03-29] MEDS ORDERED: Lidocaine 2% PF 5 ML VIAL ONE (11:10)
[2023-03-29] MEDS ORDERED: Propofol 10 MG/ML 20 ML BTL ONE (11:10)
[2023-03-29 11:16] LABS: Rapid COVID-19 Molecular Undetected (Undetected)
[2023-03-29] MEDS ORDERED: Bupivacaine 0.5% 50 ML MDV VIAL ONE (11:44)
[2023-03-29] MEDS ORDERED: Bupivacaine 0.25% SDV 30 ML ONE (11:44)
[2023-03-29] MEDS ORDERED: Dexmedetomidine 200 mcg/2 ml 2 ml VIAL (200 mcg) ONE (11:47)
[2023-03-29] MEDS ORDERED: Bupivacaine 0.25% w/EPI 10 ML SDV ONE (12:05)
[2023-03-29] MEDS ORDERED: Ondansetron 4 mg VIAL 2 MG/ML 2 ml VIAL IV PRN (16:48)
[2023-03-29] MEDS ORDERED: Albuterol/Ipratropium NEB.SOL (2.5/0.5 MG) 3 ML NEB.SOLN INH PRN (16:52)
[2023-03-29] MEDS ORDERED: fentaNYL 100 mcg/2 ml 50 MCG/ML VIAL ONE ×2 (17:10→18:25)
[2023-03-29] MEDS: fentaNYL 100 mcg/2 ml 50 MCG/ML VIAL IV PRN ×3 (17:11→18:25)
[2023-03-29] MEDS: HYDROmorphone 1 MG/1 ML SYRINGE IV SLOW PU PRN ×2 (19:30→22:47)
[2023-03-30] MEDS: HYDROmorphone 1 MG/1 ML SYRINGE IV SLOW PU PRN ×7 (02:25→22:38)
[2023-03-30 06:28] LABS: ABS Eosinophils 0.1 10^3/uL (0.0-0.5); ABS Lymphocytes 1.1 10^3/uL (1.0-4.8); ABS Monocytes 0.8 10^3/uL (0.0-1.1); ABS Neutrophils 11.3 10^3/uL (1.5-7.6); Eosinophil % 0.5 %; Hematocrit 38.3 % (38-53); Hemoglobin 13.3 g/dL (13.2-16.3); Lymphocyte % 8.6 %; Mean Corpuscular Hemoglobin 31.6 pg (27-33); Mean Corpuscular Hgb Conc 34.6 g/dL (31-36); Mean Corpuscular Volume 91.4 fL (80-97); Platelet Count 317 10^3/uL (150-450); Red Cell Distribution Width 12.7 % (12-17); White Blood Count 13.4 10^3/uL (3.6-10.2)
[2023-03-30 06:53] LABS: Creatinine, Serum 0.92 mg/dL (0.67-1.17); Potassium 4.2 mmol/L (3.5-5.0); eGFR CKD-EPI 107.2 (>60)
[2023-03-30] MEDS: Enoxaparin 40 MG/0.4 ML SYR SUBCUT SCH (08:21)
[2023-03-31] MEDS: HYDROmorphone 1 MG/1 ML SYRINGE IV SLOW PU PRN ×2 (02:08→07:31)
[2023-03-31] MEDS: Enoxaparin 40 MG/0.4 ML SYR SUBCUT SCH (08:35)
[2023-03-31] MEDS ORDERED: HYDROmorphone 1 MG/1 ML SYRINGE IV SLOW PU PRN (09:25)
[2023-03-31 14:15] VITALS: BP 131/72
== END 2023-03-31 15:40 | disposition home or self-care (01) | DRG 221 ==
LOC: AA 10:26 → SSU 18:53
PROVIDERS: ADMIT Surgery; ATTEND Surgery